=== PATIENT | female | born 1985 | race Caucasian/White ===

== ENCOUNTER 2022-07-05 10:25 | Emergency (ER) | payer OTHER ==
[~2022-07-05] VITALS: Ht 175.3 cm; Wt 82.2 kg
--- OUTSIDE RECORDS SUMMARY | 2022-07-05 10:28 | XMS ---
PreManage Notification: MANJULA CHARLES [employer] Worker Events No recent Security Events currently on file CRITERIA MET - [facility] CARE PROVIDERS There are no care providers on record at this time. Jerry has no Care Guidelines for this patient. Cinthya VISIT COUNT (12 MO.) [address] [place] [address] [address] TOTAL 3 NOTE: Visits indicate total known visits. ED/C VISIT TRACKING (12 MO.) 07/05/2022 10:26 [facility] [place] TYPE: Emergency COMPLAINT: - CHEST PAIN,BP ISSUES 02/16/2022 21:35 [facility] [employer] [place] TYPE: Emergency DIAGNOSES: - Unspecified convulsions - SEIZURE 02/12/2022 16:31 [employer] [facility] [employer] [place] TYPE: Emergency DIAGNOSES: - Depression, unspecified - Suicidal ideations - INGESTION INPATIENT VISIT TRACKING (12 MO.) No inpatient visits to display in this time frame [email or web address]
[2022-07-05] MEDS ORDERED: TIROSINT137 MCG PO (10:37)
[2022-07-05] MEDS ORDERED: TIROSINT125 MCG PO (10:37)
[2022-07-05] MEDS ORDERED: ALPRAZOLAM1 MG PO (10:37)
[2022-07-05] MEDS ORDERED: PRILOSEC OTC20 MG PO (13:00)
--- NOTE | 2022-07-06 07:33 | EKG ---
[facility] [address] [place], [place] [address] Signed Normal sinus rhythm with sinus arrhythmia Normal ECG No previous ECGs available Confirmed by BERT SHANKAR MD ([id number] on 07/06/2022 7:32:53 AM Electronically Signed By: BERT SHANKAR MD 07/06/22 0733 PATIENT NAME: MANJULA CHARLES APRIL Electrocardiogram DATE OF : 89 PHYSICIAN: BERT SHANKAR MD REPORT #: [id number] REPORT IS CONFIDENTIAL AND NOT TO BE RELEASED WITHOUT AUTHORIZATION
== END 2022-07-05 13:10 | disposition home or self-care (01) ==
LOC: ED 10:25
DX: K29.70 Gastritis, unspecified, without bleeding (principal); R00.2 Palpitations; Z20.822 Contact with and (suspected) exposure to COVID-19; Z85.850 Personal history of malignant neoplasm of thyroid
CPT/HCPCS: 36415; 71045; 80053; 83690; 83735; 84484; 85025; 85379; 87502; 93005; 93010; A9270; C9803; J7030; U0003